=== PATIENT | male | born 1995 | race African-American/Black ===

== ENCOUNTER 2017-11-20 05:06 | Emergency (ER) | payer MEDICAID, OTHER ==
[~2017-11-20] VITALS: Ht 190.5 cm; Wt 120.0 kg
[2017-11-20] MEDS ORDERED: PREDNISONE 20MG TABLET PO STA (08:09)
[2017-11-20] MEDS ORDERED: IPRATROPIUM BROMIDE (0.02%) 0.5MG/2.5ML NEB HHN STA (08:09)
[2017-11-20] MEDS ORDERED: ALBUTEROL (0.083%) 2.5MG/3ML NEB HHN STA (08:09)
[2017-11-20 10:42] VITALS: BP 128/80
== END 2017-11-20 10:53 | disposition home or self-care (01) ==
LOC: ER 05:06
DX: R05 Cough (principal); F17.210 Nicotine dependence, cigarettes, uncomplicated
CPT/HCPCS: 71045; 94640; 99283; J7512; J7611

== ENCOUNTER 2018-03-21 23:47 | Emergency (ER) | payer MEDICAID ==
[~2018-03-21] VITALS: Ht 190.5 cm; Wt 116.0 kg
[2018-03-22] MEDS ORDERED: IBUPROFEN 600MG TABLET PO ONE (02:00)
[2018-03-22] MEDS ORDERED: METHOCARBAMOL 500MG TABLET PO ONE (02:00)
[2018-03-22 04:22] VITALS: BP 143/75
== END 2018-03-22 04:32 | disposition home or self-care (01) ==
LOC: ER 03-22 00:23
DX: S16.1XXA Strain of muscle, fascia and tendon at neck level, initial encounter (principal); M54.5 Low back pain; F17.200 Nicotine dependence, unspecified, uncomplicated; V43.62XA Car passenger injured in collision with other type car in traffic accident, initial encounter; Y93.89 Activity, other specified; Y92.488 Other paved roadways as the place of occurrence of the external cause
CPT/HCPCS: 70450; 72125; 99284

== ENCOUNTER 2024-02-11 00:27 | Emergency (ER) | payer MEDICAID ==
[~2024-02-11] VITALS: Ht 190.5 cm; Wt 140.0 kg
[2024-02-11 00:31] VITALS: TEMP 98.1; O2SAT 98
[2024-02-11] MEDS ORDERED: LIDOCAINE HCL/EPINEPHRINE 1%-EPI 1:100,000 20 ML VIAL INFIL ONE (01:00)
[2024-02-11] MEDS: CEFAZOLIN 1000MG PREMIX 50 ML IV ONE (01:45)
[2024-02-11] MEDS ORDERED: LIDOCAINE HCL/EPINEPHRINE 1%-EPI 1:100,000 20 ML VIAL INFIL NR (02:00)
[2024-02-11] MEDS: LIDOCAINE HCL 1% 20ML VIAL INFIL ONE (02:00)
[2024-02-11 03:11] LABS: BASOPHILS % 0.3 % (0.0-2.0); EOSINOPHILS % 0.2 % (0.0-5.0); HEMATOCRIT. 45.4 % (42.0-52.0); LYMPHOCYTES % 17.1 % (20.0-50.0); MEAN CORPUSCULAR HEMOGLOBIN 30.7 pg (28.0-32.0); MEAN CORPUSCULAR HGB CONC 33.1 g/dL (31.0-37.0); MEAN CORPUSCULAR VOLUME 92.9 fL (80.0-94.0); MEAN PLATELET VOLUME 8.5 fl (7.4-10.4); MONOCYTES % 4.4 % (2.0-8.0); PLATELET 215 x1000/uL (130-400); RED BLOOD CELL COUNT 4.88 mill/uL (4.7-6.1); WHITE BLOOD COUNT 13.6 x1000/uL (4.5-11.0)
[2024-02-11 03:22] LABS: CHLORIDE 110 mEq/L (98-107); POTASSIUM 3.6 mEq/L (3.5-5.1); SODIUM 140 mEq/L (136-145)
[2024-02-11 03:23] LABS: CARBON DIOXIDE 23 mEq/L (21-32)
[2024-02-11 03:24] LABS: CALCIUM 8.9 mg/dL (8.7-10.4)
[2024-02-11 03:25] LABS: INR 0.9; PROTHROMBIN TIME 10.3 sec (9.6-11.0)
[2024-02-11 03:28] LABS: CREATININE 1.2 mg/dL (0.6-1.3); GLUCOSE 130 mg/dL (70-105); UREA NITROGEN BLOOD 14 mg/dL (9-23)
[2024-02-11 04:04] VITALS: BP 129/76; PULSE 64; RESP 18
[2024-02-11] MEDS: ONDANSETRON HCL 4MG/2ML INJ IV ONE (04:04)
[2024-02-11] MEDS: MORPHINE SULFATE 4 MG/ML INJ (FOR IV/IM USE) IV ONE (04:04)
== END 2024-02-11 04:15 | disposition home or self-care (01) ==
LOC: ER 00:27
DX: S62.616B Displaced fracture of proximal phalanx of right little finger, initial encounter for open fracture (principal); W34.09XA Accidental discharge from other specified firearms, initial encounter; Y93.89 Activity, other specified; Y92.89 Other specified places as the place of occurrence of the external cause; Y99.8 Other external cause status
CPT/HCPCS: 99285; 96365; 96375; 80048; 85025; 85610; 86850; 86900; 86901; 36415; 73130; 12002; J0690; J3490 ×2; J2405; J2270

== ENCOUNTER 2025-07-10 11:53 | Emergency (ER) | payer MEDICAID ==
[~2025-07-10] VITALS: Ht 190.5 cm; Wt 119.0 kg
[2025-07-10 12:05] VITALS: O2SAT 100
[2025-07-10] MEDS: ACETAMINOPHEN 325MG TABLET PO ONE (13:32)
[2025-07-10] MEDS: LIDOCAINE HCL/EPINEPHRINE 1%-EPI 1:100,000 20ML VIAL INFIL ONE (13:48)
[2025-07-10] MEDS ORDERED: ACET-2708 MT (14:52)
[2025-07-10 15:36] VITALS: BP 151/83; PULSE 71; RESP 20; TEMP 36.8; O2SAT 100
== END 2025-07-10 15:38 | disposition home or self-care (01) ==
LOC: ER 12:53
DX: S62.307A Unspecified fracture of fifth metacarpal bone, left hand, initial encounter for closed fracture (principal); W18.30XA Fall on same level, unspecified, initial encounter; Y93.61 Activity, american tackle football; Y92.89 Other specified places as the place of occurrence of the external cause; Y99.8 Other external cause status
CPT/HCPCS: 73130; 26605; 99284; A6449; Z7610

== ENCOUNTER 2025-07-30 08:56 | Emergency (ER) | payer MEDICAID ==
[~2025-07-30] VITALS: Ht 190.5 cm; Wt 123.0 kg
[~2025-07-30 08:56] MED LIST: ACET-2708 MT
[2025-07-30 09:01] VITALS: O2SAT 99
[2025-07-30 10:49] VITALS: BP 122/70; PULSE 71; RESP 16; TEMP 36.7; O2SAT 99
== END 2025-07-30 11:26 | disposition home or self-care (01) ==
LOC: ER 08:56
DX: S62.306A Unspecified fracture of fifth metacarpal bone, right hand, initial encounter for closed fracture (principal); Z87.19 Personal history of other diseases of the digestive system; W21.01XA Struck by football, initial encounter; Y93.61 Activity, american tackle football; Y92.89 Other specified places as the place of occurrence of the external cause; Y99.8 Other external cause status
CPT/HCPCS: 99283; 73130; 29125; A6449